=== PATIENT | female | born 1935 | race Caucasian/White ===

== ENCOUNTER 2018-04-07 11:31 | Day surgery (SDC) | payer MEDICARE, BC ==
[~2018-04-07 11:31] MED LIST: Buffered Lidocaine 0.9% SYRIN* 5 ML/SYR SYRINGE INTRADERM ONE; NS 0.9% 1000 ML* 1,000 ML IV SCH
[2018-04-07] MEDS ORDERED: Buffered Lidocaine 0.9% SYRIN* 5 ML/SYR SYRINGE ONE (11:49)
[2018-04-07] MEDS ORDERED: ceFAZolin 2 GM PREMIX (*) 2 GM/50 ML BAG IVPB ONE (11:49)
[2018-04-07] MEDS ORDERED: fentaNYL* 50 MCG/ML 2 ML VIAL (100 MCG VIAL) ONE (13:13)
[2018-04-07] MEDS ORDERED: Midazolam* 1 MG/ML 2 ML VIAL (2 MG) ONE ×2 (13:13→14:29)
[2018-04-07] MEDS ORDERED: Lidocain 1% EPI 1:100,000 * 30 ML MDV ONE (13:51)
[2018-04-07] MEDS ORDERED: Naloxone* 0.4 MG/ML 1 ML VIAL IV PRN (14:51)
[2018-04-07] MEDS ORDERED: PROCHLORPERAZINE INJ 5 MG/ML 2 ML VIAL IV PRN (14:51)
[2018-04-07] MEDS ORDERED: Ondansetron ODT TAB* 4 MG PO PRN (14:51)
[2018-04-07] MEDS ORDERED: HYDROcodone/ACETAMIN 5-325 MG* 1 TAB PO PRN (14:51)
[2018-04-07] MEDS ORDERED: Acetaminophen TAB* 325 MG PO PRN (14:51)
[2018-04-07] MEDS ORDERED: Lidocaine 2% PF * 5 ML VIAL ONE (15:19)
[2018-04-07] MEDS ORDERED: Famotidine IV* 10 MG/ML 2 ML (20 mg) ONE (15:20)
[2018-04-07] MEDS ORDERED: Propofol* 10 MG/ML 20 ML BTL IV PUSH ONE (15:20)
[2018-04-07 16:50] VITALS: BP 105/62
== END 2018-04-07 16:52 | disposition home or self-care (01) ==
LOC: OR 11:31
PROVIDERS: ATTEND Plastic Surgery
DX: C44.319 Basal cell carcinoma of skin of other parts of face (principal)
CPT/HCPCS: 88305; 88331; 88332; J0690; J2250; J2704; J3010

== ENCOUNTER 2019-07-05 09:27 | Emergency (ER) | payer MEDICARE, BC ==
[2019-07-05 10:23] VITALS: BP 130/58
--- NOTE | 2019-07-05 10:44 | UC ---
Skin Complaint HPI - HPI Summary HPI Summary: 83-year-old woman comes in with a chief complaint of rash. Started for 5 days ago. Started initially in the left shoulder left upper arm. Now she is noticing is spread of it to the lower left arm and also to the right arm. Also notices one area on the right hip is bothering her. She reports that it itches. Denies any pain or fever. Denies any drainage from the rash. Has been using Benadryl and calamine and Neosporin and she feels like the rash is spreading. Has not seen any vesicles. No difficulty swallowing or breathing. - History of Current Complaint Chief Complaint: UCSkin Time Seen by Provider: 07/05/19 10:32 Stated Complaint: SKIN COMPLAINT Pain Intensity: 0 - Allergy/Home Medications Allergies/Adverse Reactions: Allergies Allergy/AdvReac Type Severity Reaction Status Date / Time No Known Allergies Allergy Verified 07/05/19 10:15 Home Medications: Home Medications Calcium Carbonate [Calcium] 500 mg PO DAILY 07/05/19 [History Confirmed 07/05/19 ] PMH/Surg Hx/FS Hx/Imm Hx Previously Healthy: Yes Cardiovascular History: Hypertension - Surgical History Surgical History: Yes Surgery Procedure, Year, and Place: appendectomy 2017. tonsillectomy as a child - Family History Known Family History: Positive: Non-Contributory - Social History Alcohol Use: Occasionally Substance Use Type: None Smoking Status (MU): Never Smoked Tobacco Review of Systems All Other Systems Reviewed And Are Negative: Yes Constitutional: Positive: Negative Skin: Positive: Other - SEE HPI Eyes: Positive: Negative ENT: Positive: Negative Respiratory: Positive: Negative Cardiovascular: Positive: Negative Gastrointestinal: Positive: Negative Motor: Positive: Negative Neurovascular: Positive: Negative Musculoskeletal: Positive: Negative Neurological: Positive: Negative Psychological: Positive: Negative Is Patient Immunocompromised?: No Physical Exam Triage Information Reviewed: Yes Appearance: Well-Appearing, No Pain Distress, Well-Nourished Vital Signs: Initial Vital Signs Temp 97.9 F 07/05/19 10:19 Pulse 90 07/05/19 10:19 Resp 20 07/05/19 10:19 BP 130/58 07/05/19 10:19 Pulse Ox 99 07/05/19 10:19 Vital Signs Reviewed: Yes Eye Exam: Normal Eyes: Positive: Conjunctiva Clear ENT: Positive: Pharynx normal - OPEN Neck: Positive: Supple Respiratory: Positive: Lungs clear, Normal breath sounds, No respiratory distress Cardiovascular: Positive: RRR Musculoskeletal: Positive: Strength Intact, ROM Intact Neurological: Positive: Alert, Muscle Tone Normal Psychological: Positive: Age Appropriate Behavior Skin: Positive: Other - Patient has a dry flaking rash on erythema primarily in the left deltoid area in the left bicep area. Is also some smaller lesions left forearm right forearm and right hip area. No drainage. It is blanching. Patient has been scratching the areas. There is no rash proximal to the left deltoid. Course/Dx - Course Course Of Treatment: The rash appears to be a contact dermatitis. The distribution on the upper arms brought in the question of shingles however the patient denies any pain associated with that she just reports itching. Also she has other areas of the rash on her left forearm right forearm and right hip. Question whether or not the Neosporin is making the rash worse. Plan is to continue the calamine and Benadryl as needed. Stop the Neosporin and replaced with mupirocin and case there is any reaction from the Neosporin and there is any sort of bacterial component. Also prescribed a Medrol Dosepak. Talked to the patient and let her know if anything got worse she needs to get reevaluated again right away. - Diagnoses Provider Diagnosis: Rash Discharge ED - Sign-Out/Discharge Documenting (check all that apply): Patient Departure All imaging exams completed and their final reports reviewed: No Studies - Discharge Plan Condition: Stable Disposition: HOME Prescriptions: methylPREDNISolone [Medrol Dosepak 4 MG*] 0 mg PO .SEE RAJ INSTRUCTION #1 raj Mupirocin 1 applic TOPICAL BID #22 gm Patient Education Materials: Acute Rash (ED), Dermatitis (ED) Referrals: En Thompson DO [Primary Care Provider] - Additional Instructions: FOLLOW UP WITH YOUR DOCTOR. GET REEVALUATED SOONER IF WORSE; SPREAD OF THE RASH, DIFFICULTY SWALLOWING OR BREATHING, FEVER, YOU FEEL ILL OR ANY QUESTIONS OR CONCERNS. - Billing Disposition and Condition Condition: STABLE Disposition: Home
== END 2019-07-05 10:49 | disposition home or self-care (01) ==
LOC: UCCORT 09:27
DX: R21 Rash and other nonspecific skin eruption (principal); I10 Essential (primary) hypertension
CPT/HCPCS: 99212; G0463